=== PATIENT | female | born 1950 | race Caucasian/White ===

== ENCOUNTER 2018-02-16 10:04 | Emergency (ER) | payer MEDICARE, MEDICAID ==
[~2018-02-16] VITALS: Ht 152.4 cm; Wt 70.6 kg
[2018-02-16 10:06] VITALS: BP 152/80
[2018-02-16] MEDS ORDERED: METO100T7 PO (11:09)
[2018-02-16] MEDS ORDERED: LEVO125T5 PO (11:10)
[2018-02-16 11:11] LABS: BASOPHILS # (AUTO) 0.07 x10^3/uL (0-0.1); BASOPHILS % (AUTO) 1 % (0-1); EOSINOPHILS # (AUTO) 0.22 x10^3/uL (0-0.4); EOSINOPHILS % (AUTO) 2 % (1-7); LYMPHOCYTES # (AUTO) 2.85 x10^3/uL (1-3.4); LYMPHOCYTES % (AUTO) 26 % (22-44); MD NO; MEAN CORPUSCULAR HEMOGLOBIN 30.8 pg (27.0-34.8); MEAN CORPUSCULAR VOLUME 93.2 fL (80-100); MEAN PLATELET VOLUME 8.1 fL (7.4-10.4); MONOCYTES # (AUTO) 0.66 x10^3/uL (0.2-0.8); MONOCYTES % (AUTO) 6 % (2-9); NEUTROPHILS # (AUTO) 7.24 x10^3/uL (1.8-6.8); NEUTROPHILS % (AUTO) 66 % (42-75); PLATELET COUNT 329 x10^3/uL (130-400); RED BLOOD COUNT 4.29 x10^6/uL (3.82-5.3); RED CELL DISTRIBUTION WIDTH 15.8 % (9.6-15.2)
[2018-02-16 11:13] LABS: ANION GAP 10 mmol/L (5-15); CALCIUM 8.6 mg/dL (8.5-10.1); CHLORIDE 104 mmol/L (98-107)
[2018-02-16 11:14] LABS: ALBUMIN 3.6 g/dL (3.4-5.0)
== END 2018-02-16 13:15 | disposition home or self-care (01) ==
LOC: ED 12:55
DX: F43.23 Adjustment disorder with mixed anxiety and depressed mood (principal); R68.89 Other general symptoms and signs; I10 Essential (primary) hypertension; E11.9 Type 2 diabetes mellitus without complications; I25.2 Old myocardial infarction
CPT/HCPCS: 36415; 80048; 82040; 85025; 99284

== ENCOUNTER 2018-07-03 12:53 | Emergency (ER) | payer MEDICARE, MEDICAID ==
[~2018-07-03] VITALS: Ht 149.9 cm; Wt 80.0 kg
[~2018-07-03 12:53] MED LIST: LEVO125T5 PO; METO100T7 PO
[2018-07-03] MEDS ORDERED: SODIUM CHLORIDE 0.9% 1,000 ML IV ONE (13:41)
[2018-07-03] MEDS ORDERED: SODIUM CHLORIDE FLUSH 10ML SYR IVF ONE (14:00)
[2018-07-03] MEDS ORDERED: INSULIN REGULAR 100 UNITS/ML, 3ML VIAL SQ-INSULIN ONE (14:00)
[2018-07-03] MEDS ORDERED: HYDROcodone/APAP 5/325 TABLET ONE (14:09)
[2018-07-03 14:12] LABS: BASOPHILS # (AUTO) 0.05 x10^3/uL (0-0.1); BASOPHILS % (AUTO) 0 % (0-1); EOSINOPHILS # (AUTO) 0.07 x10^3/uL (0-0.4); EOSINOPHILS % (AUTO) 1 % (1-7); LYMPHOCYTES # (AUTO) 1.34 x10^3/uL (1-3.4); LYMPHOCYTES % (AUTO) 9 % (22-44); MD NO; MEAN CORPUSCULAR HEMOGLOBIN 30.5 pg (27.0-34.8); MEAN CORPUSCULAR HGB CONC 33.1 g/dL (32.4-35.8); MEAN CORPUSCULAR VOLUME 92.3 fL (80-100); MEAN PLATELET VOLUME 8.1 fL (7.4-10.4); MONOCYTES # (AUTO) 0.66 x10^3/uL (0.2-0.8); MONOCYTES % (AUTO) 4 % (2-9); NEUTROPHILS # (AUTO) 12.83 x10^3/uL (1.8-6.8); NEUTROPHILS % (AUTO) 86 % (42-75); PLATELET COUNT 371 x10^3/uL (130-400); RED BLOOD COUNT 4.02 x10^6/uL (3.82-5.3); RED CELL DISTRIBUTION WIDTH 13.7 % (9.6-15.2)
[2018-07-03 14:18] LABS: INTERNATIONAL NORMALIZED RATIO 1.05 (0.93-1.1); PROTHROMBIN TIME 11.1 Seconds (9.6-11.5)
[2018-07-03 14:22] LABS: ALANINE AMINOTRANSFERASE 15 U/L (12-78); ALBUMIN 2.7 g/dL (3.4-5.0); ANION GAP 11 mmol/L (5-15); CALCIUM 8.4 mg/dL (8.5-10.1); CHLORIDE 106 mmol/L (98-107); CREATININE 1.88 mg/dL (0.55-1.02)
[2018-07-03 14:24] LABS: ALKALINE PHOSPHATASE 119 U/L (45-117); BILIRUBIN,TOTAL 0.4 mg/dL (0.2-1.0); TOTAL PROTEIN 7.3 g/dL (6.4-8.2)
[2018-07-03] MEDS ORDERED: HYDROcodone/APAP 5/325 TABLET PO ONE (14:30)
[2018-07-03 14:59] LABS: ACETONE, SERUM Negative (Negative)
[2018-07-03] MEDS ORDERED: LIDOCAINE-MPF 1%, 2ML ONE (15:48)
[2018-07-03 15:51] VITALS: BP 131/83
[2018-07-03] MEDS ORDERED: LIDOCAINE-MPF 1%, 5ML ONE (16:00)
[2018-07-03] MEDS ORDERED: AMOXICILLIN/CLAV 875-125MG TABLET ONE (16:17)
[2018-07-03] MEDS ORDERED: AMOXICILLIN/CLAV 875-125MG TABLET PO ONE (16:30)
== END 2018-07-03 16:42 | disposition home or self-care (01) ==
LOC: ED 16:05
DX: L05.01 Pilonidal cyst with abscess (principal); E11.9 Type 2 diabetes mellitus without complications
CPT/HCPCS: 10080; 36415; 72192; 80053; 82010; 82800; 82962; 83735; 85025; 85610; 87070; 87077; 87205; 96372; 99284; J7030; 87186

== ENCOUNTER 2018-07-10 14:48 | Inpatient (IN) | payer OTHER, MEDICAID ==
[~2018-07-10] VITALS: Ht 149.9 cm; Wt 72.4 kg
[2018-07-10] MEDS ORDERED: NITROGLYCERIN 0.4 MG BOTTLE (25 TABS) SL PRN (19:00)
[2018-07-10] MEDS ORDERED: morphine SULFATE 10 MG/ML, 1ML IV PRN (19:00)
[2018-07-10 19:29] LABS: MEAN CORPUSCULAR HGB CONC 33.5 g/dL (32.4-35.8); MEAN CORPUSCULAR VOLUME 92.6 fL (80-100); MEAN PLATELET VOLUME 7.5 fL (7.4-10.4); PLATELET COUNT 527 x10^3/uL (130-400); RED BLOOD COUNT 4.14 x10^6/uL (3.82-5.3); RED CELL DISTRIBUTION WIDTH 13.9 % (9.6-15.2)
[2018-07-10 19:41] LABS: ALBUMIN 3.1 g/dL (3.4-5.0); ANION GAP 10 mmol/L (5-15); CALCIUM 8.8 mg/dL (8.5-10.1); CHLORIDE 108 mmol/L (98-107)
[2018-07-10 19:45] LABS: ALANINE AMINOTRANSFERASE 15 U/L (12-78); ALKALINE PHOSPHATASE 99 U/L (45-117); BILIRUBIN,TOTAL 0.2 mg/dL (0.2-1.0); CREATININE 1.76 mg/dL (0.55-1.02); TOTAL PROTEIN 7.4 g/dL (6.4-8.2)
[2018-07-10 19:52] VITALS: BP 139/65
[2018-07-10 19:55] LABS: MD YES
[2018-07-10] MEDS: FAMOTIDINE 20 MG TABLET PO SCH (19:57)
[2018-07-10] MEDS: OXYcodone/APAP 7.5/325MG TABLET PO PRN ×2 (19:58→23:58)
[2018-07-10] MEDS: METOPROLOL TARTRATE 100 MG TABLET PO SCH (19:58)
[2018-07-10] MEDS: PIPERACILLIN/TAZO/PMX 3.375GM 50 ML IV SCH (19:58)
[2018-07-10 20:27] LABS: BAND#(MANUAL) 1.39 x10^3/uL; BANDS%(MANUAL) 7 % (0-7); EOS% (MANUAL) 1 % (1-7); LYMPH#(MANUAL) 2.97 x10^3/uL (1-3.4); LYMPHS% (MANUAL) 15 % (22-44); METAMYELOCYTES% (MANUAL) 1 % (0-1); SEG#(MANUAL) 15.05 x10^3/uL (1.8-6.8); SEGS% (MANUAL) 76 % (42-75)
[2018-07-10 20:28] LABS: <PLATELET ESTIMATE> INCREASED; <PLT MORPHOLOGY> NORMAL PLT MORPH; <RBC MORPHOLOGY> NORMAL
[2018-07-10] MEDS: INSULIN REGULAR, HUMAN 100 UNITS/ML, 3ML MEDIUM DOSE SS SQ-INSULIN SCH (22:02)
[2018-07-11] MEDS: D5%-0.45NACL+KCL 20MEQ 1,000 ML IV SCH ×2 (00:53→13:28)
[2018-07-11 01:53] VITALS: BP 167/73
[2018-07-11] MEDS: INSULIN REGULAR, HUMAN 100 UNITS/ML, 3ML MEDIUM DOSE SS SQ-INSULIN SCH ×2 (04:00→10:00)
[2018-07-11] MEDS: PIPERACILLIN/TAZO/PMX 3.375GM 50 ML IV SCH ×3 (04:32→19:51)
[2018-07-11] MEDS: METOPROLOL TARTRATE 100 MG TABLET PO SCH ×2 (04:32→17:02)
[2018-07-11] MEDS: LEVOTHYROXINE 125 MCG TABLET PO SCH (04:32)
[2018-07-11] MEDS ORDERED: IRBE300T16 PO (06:18)
[2018-07-11] MEDS ORDERED: PRAS10TA9 PO (06:19)
[2018-07-11] MEDS ORDERED: FURO-93 PO (06:20)
[2018-07-11] MEDS ORDERED: AMLO10TA6 PO (06:20)
[2018-07-11] MEDS ORDERED: NITR0.4T SL (06:24)
[2018-07-11] MEDS ORDERED: ONDANSETRON 2MG/ML, 2ML ONE ×2 (08:34→10:46)
[2018-07-11] MEDS ORDERED: GLYCOPYRROLATE 0.2MG/1ML, 5ML ONE (08:34)
[2018-07-11] MEDS ORDERED: DEXAMETHASONE 4 MG/ML, 1ML ONE ×2 (08:34→10:46)
[2018-07-11] MEDS ORDERED: PROPOFOL 10 MG/ML, 20ML ONE ×2 (08:34→10:46)
[2018-07-11] MEDS ORDERED: EPHEDRINE 50 MG/ML, 1ML ONE (08:34)
[2018-07-11 08:36] VITALS: BP 144/57
[2018-07-11] MEDS ORDERED: PRASUGREL 5 MG TABLET PO SCH (09:00)
[2018-07-11] MEDS: FUROSEMIDE 20 MG TABLET PO SCH (09:00)
[2018-07-11] MEDS ORDERED: OXYcodone 5 MG/5 ML ORAL.SOL UDC PO PRN (09:30)
[2018-07-11] MEDS ORDERED: LABETALOL 5MG/ML, 20ML IV PRN (09:30)
[2018-07-11] MEDS ORDERED: PROMETHAZINE 25 MG/ML, 1ML IV PRN (09:30)
[2018-07-11] MEDS ORDERED: DIPHENHYDRAMINE 50 MG/ML, 1ML IVPush PRN (09:30)
[2018-07-11] MEDS ORDERED: hydrALAzine 20 MG/ML, 1ML IV PRN (09:30)
[2018-07-11] MEDS ORDERED: HYDROmorphone 2 MG/ML, 1ML IVPush PRN (09:30)
[2018-07-11] MEDS ORDERED: PROCHLORPERAZINE 5 MG/ML, 2ML IV PRN (09:30)
[2018-07-11] MEDS ORDERED: HALOPERIDOL 5 MG/ML IV PRN (09:30)
[2018-07-11] MEDS ORDERED: OXYcodone 5 MG/5 ML ORAL.SOL UDC ONE (10:02)
[2018-07-11] MEDS ORDERED: FENTANYL PF 100 MCG/2ML ONE (10:02)
[2018-07-11] MEDS: FENTANYL PF 100 MCG/2ML IV PRN ×2 (10:05→10:10)
[2018-07-11] MEDS ORDERED: MEPERIDINE/PF 50 MG/ML ONE (10:23)
[2018-07-11] MEDS: MEPERIDINE/PF 25MG/0.5ML IVPush PRN ×2 (10:25→10:30)
[2018-07-11] MEDS ORDERED: SUCCINYLCHOLINE 20 MG/ML, 10ML ONE (10:46)
[2018-07-11] MEDS ORDERED: KETOROLAC 30 MG/1 ML ONE (10:46)
[2018-07-11] MEDS ORDERED: CEFAZOLIN 1,000 MG ONE (10:46)
[2018-07-11] MEDS: AMLODIPINE 10 MG TAB PO SCH (11:47)
[2018-07-11] MEDS: ALLOPURINOL 300 MG TABLET PO SCH (11:47)
[2018-07-11] MEDS: IRBESARTAN 300 MG TABLET PO SCH (11:48)
[2018-07-11] MEDS: FAMOTIDINE 20 MG TABLET PO SCH ×2 (11:48→19:39)
[2018-07-11] MEDS: OXYcodone/APAP 7.5/325MG TABLET PO PRN ×2 (13:28→19:39)
[2018-07-11] MEDS: PRASUGREL 10 MG TABLET PO SCH (13:28)
[2018-07-11] MEDS: INSULIN REGULAR 100 UNITS/ML, 3ML VIAL SQ-INSULIN SCH ×2 (14:00→19:52)
[2018-07-11 15:09] VITALS: BP 144/57
[2018-07-11 19:49] VITALS: BP 106/51
[2018-07-12 01:52] VITALS: BP 138/55
[2018-07-12] MEDS: INSULIN REGULAR 100 UNITS/ML, 3ML VIAL SQ-INSULIN SCH ×2 (02:00→08:03)
[2018-07-12] MEDS: OXYcodone/APAP 7.5/325MG TABLET PO PRN ×3 (02:06→14:17)
[2018-07-12] MEDS: D5%-0.45NACL+KCL 20MEQ 1,000 ML IV SCH (02:40)
[2018-07-12] MEDS: PIPERACILLIN/TAZO/PMX 3.375GM 50 ML IV SCH ×3 (04:20→20:58)
[2018-07-12 04:48] LABS: BASOPHILS # (AUTO) 0.04 x10^3/uL (0-0.1); BASOPHILS % (AUTO) 0 % (0-1); EOSINOPHILS # (AUTO) 0.01 x10^3/uL (0-0.4); EOSINOPHILS % (AUTO) 0 % (1-7); LYMPHOCYTES # (AUTO) 2.41 x10^3/uL (1-3.4); LYMPHOCYTES % (AUTO) 15 % (22-44); MD NO; MEAN CORPUSCULAR HGB CONC 33.3 g/dL (32.4-35.8); MEAN PLATELET VOLUME 7.3 fL (7.4-10.4); MONOCYTES # (AUTO) 0.75 x10^3/uL (0.2-0.8); MONOCYTES % (AUTO) 5 % (2-9); NEUTROPHILS # (AUTO) 12.89 x10^3/uL (1.8-6.8); NEUTROPHILS % (AUTO) 80 % (42-75); PLATELET COUNT 451 x10^3/uL (130-400); RED BLOOD COUNT 3.58 x10^6/uL (3.82-5.3); RED CELL DISTRIBUTION WIDTH 14.5 % (9.6-15.2)
[2018-07-12] MEDS: METOPROLOL TARTRATE 100 MG TABLET PO SCH ×2 (06:08→17:17)
[2018-07-12] MEDS: LEVOTHYROXINE 125 MCG TABLET PO SCH (06:08)
[2018-07-12 07:30] VITALS: BP 115/69
[2018-07-12] MEDS: AMLODIPINE 10 MG TAB PO SCH (08:04)
[2018-07-12] MEDS: IRBESARTAN 300 MG TABLET PO SCH (08:04)
[2018-07-12] MEDS: ALLOPURINOL 300 MG TABLET PO SCH (08:04)
[2018-07-12] MEDS: GLIMEPIRIDE 1 MG TABLET PO SCH (08:04)
[2018-07-12] MEDS: PRASUGREL 10 MG TABLET PO SCH (08:04)
[2018-07-12] MEDS: FAMOTIDINE 20 MG TABLET PO SCH ×2 (08:04→21:00)
[2018-07-12] MEDS: FUROSEMIDE 20 MG TABLET PO SCH (08:05)
[2018-07-12 12:43] VITALS: BP 114/57
[2018-07-12 20:14] VITALS: BP 131/57
[2018-07-13 01:25] VITALS: BP 103/53
[2018-07-13] MEDS: PIPERACILLIN/TAZO/PMX 3.375GM 50 ML IV SCH ×3 (05:04→19:46)
[2018-07-13 05:23] LABS: BASOPHILS # (AUTO) 0.07 x10^3/uL (0-0.1); BASOPHILS % (AUTO) 1 % (0-1); EOSINOPHILS # (AUTO) 0.25 x10^3/uL (0-0.4); EOSINOPHILS % (AUTO) 2 % (1-7); LYMPHOCYTES # (AUTO) 3.86 x10^3/uL (1-3.4); LYMPHOCYTES % (AUTO) 28 % (22-44); MD NO; MEAN CORPUSCULAR HEMOGLOBIN 30.5 pg (27.0-34.8); MEAN CORPUSCULAR HGB CONC 32.8 g/dL (32.4-35.8); MEAN CORPUSCULAR VOLUME 93.1 fL (80-100); MEAN PLATELET VOLUME 7.5 fL (7.4-10.4); MONOCYTES # (AUTO) 0.84 x10^3/uL (0.2-0.8); MONOCYTES % (AUTO) 6 % (2-9); NEUTROPHILS # (AUTO) 8.66 x10^3/uL (1.8-6.8); NEUTROPHILS % (AUTO) 63 % (42-75); PLATELET COUNT 469 x10^3/uL (130-400); RED BLOOD COUNT 3.81 x10^6/uL (3.82-5.3); RED CELL DISTRIBUTION WIDTH 14.6 % (9.6-15.2)
[2018-07-13] MEDS: OXYcodone/APAP 7.5/325MG TABLET PO PRN ×2 (05:36→13:54)
[2018-07-13] MEDS: METOPROLOL TARTRATE 100 MG TABLET PO SCH ×2 (05:37→19:46)
[2018-07-13] MEDS: LEVOTHYROXINE 125 MCG TABLET PO SCH (05:37)
[2018-07-13 08:00] VITALS: BP 159/71
[2018-07-13] MEDS: ONDANSETRON 2MG/ML, 2ML IVPush PRN ×2 (08:48→19:28)
[2018-07-13] MEDS ORDERED: ONDANSETRON ODT 4 MG PO PRN (09:00)
[2018-07-13] MEDS ORDERED: OXYC-306 PO (09:44)
[2018-07-13] MEDS ORDERED: AMOX1TAB64 PO (09:45)
[2018-07-13] MEDS: FUROSEMIDE 20 MG TABLET PO SCH (10:32)
[2018-07-13] MEDS: FAMOTIDINE 20 MG TABLET PO SCH ×2 (10:33→21:14)
[2018-07-13] MEDS: GLIMEPIRIDE 1 MG TABLET PO SCH (10:33)
[2018-07-13] MEDS: AMLODIPINE 10 MG TAB PO SCH (10:33)
[2018-07-13] MEDS: PRASUGREL 10 MG TABLET PO SCH (10:33)
[2018-07-13] MEDS: ALLOPURINOL 300 MG TABLET PO SCH (10:34)
[2018-07-13] MEDS: IRBESARTAN 300 MG TABLET PO SCH (10:34)
[2018-07-13 12:59] VITALS: BP 159/69
[2018-07-13 15:00] VITALS: BP 147/69
[2018-07-13 19:02] VITALS: BP 157/51
[2018-07-13] MEDS ORDERED: INSULIN REGULAR 100 UNITS/ML, 3ML VIAL SQ-INSULIN ONE (21:30)
[2018-07-14 00:36] VITALS: BP 155/69
[2018-07-14] MEDS: ONDANSETRON 2MG/ML, 2ML IVPush PRN ×2 (03:13→11:13)
[2018-07-14] MEDS: PIPERACILLIN/TAZO/PMX 3.375GM 50 ML IV SCH (03:59)
[2018-07-14] MEDS: LEVOTHYROXINE 125 MCG TABLET PO SCH (06:00)
[2018-07-14] MEDS ORDERED: LEVOTHYROXINE 25 MCG TABLET ONE (06:09)
[2018-07-14] MEDS ORDERED: LEVOTHYROXINE 100 MCG TABLET ONE (06:10)
[2018-07-14 06:14] VITALS: BP 106/71
[2018-07-14] MEDS: METOPROLOL TARTRATE 100 MG TABLET PO SCH (06:16)
[2018-07-14] MEDS ORDERED: TRAM-47 PO (07:43)
[2018-07-14] MEDS: AMLODIPINE 10 MG TAB PO SCH (09:00)
[2018-07-14] MEDS: IRBESARTAN 300 MG TABLET PO SCH (09:00)
[2018-07-14] MEDS: ALLOPURINOL 300 MG TABLET PO SCH (09:27)
[2018-07-14] MEDS: GLIMEPIRIDE 1 MG TABLET PO SCH (09:28)
[2018-07-14] MEDS: FUROSEMIDE 20 MG TABLET PO SCH (09:28)
[2018-07-14] MEDS: FAMOTIDINE 20 MG TABLET PO SCH (09:29)
[2018-07-14] MEDS: PRASUGREL 10 MG TABLET PO SCH (09:29)
== END 2018-07-14 11:55 | disposition home or self-care (01) | DRG 345 ==
LOC: 4NOR 17:57 → DCLOUNGE 07-14 11:38
PROVIDERS: ADMIT Surgery; ATTEND Surgery
PROC: 0D9P0ZZ Drainage of Rectum, Open Approach (ICD-10-PCS; principal; 2018-07-11 08:30)
DX: K61.1 Rectal abscess (principal); N17.9 Acute kidney failure, unspecified; I11.0 Hypertensive heart disease with heart failure; I50.9 Heart failure, unspecified; I25.10 Atherosclerotic heart disease of native coronary artery without angina pectoris; Z90.710 Acquired absence of both cervix and uterus; E11.8 Type 2 diabetes mellitus with unspecified complications; R11.2 Nausea with vomiting, unspecified; T40.2X5A Adverse effect of other opioids, initial encounter
CPT/HCPCS: 36415; 80053; 82962; 85025; 93005; G0378; J0690; J1100; J1815; J1885; J2175; J2250; J2405; J2543; J2704; J3010; J3490; Q0162; J0330; J3480

== ENCOUNTER 2018-08-17 19:21 | Emergency (ER) | payer MEDICARE, MEDICAID ==
[~2018-08-17] VITALS: Ht 152.4 cm; Wt 73.6 kg
[~2018-08-17 19:21] MED LIST changes: +AMLO10TA6 PO; +AMOX1TAB64 PO; +FURO-93 PO; +IRBE300T16 PO; +NITR0.4T SL; +OXYC-306 PO; +PRAS10TA9 PO; +TRAM-47 PO
[2018-08-17 19:28] VITALS: BP 187/91
== END 2018-08-17 20:18 | disposition home or self-care (01) ==
LOC: ED 20:12
DX: E11.65 Type 2 diabetes mellitus with hyperglycemia (principal); Z76.0 Encounter for issue of repeat prescription; I10 Essential (primary) hypertension; F32.9 Major depressive disorder, single episode, unspecified
CPT/HCPCS: 99283